=== PATIENT | male | born 2005 | race Caucasian/White ===

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

== ENCOUNTER 2024-01-12 20:36 | Emergency (ER) | payer SELFPAY ==
[~2024-01-12] VITALS: Ht 175.2 cm; Wt 63.5 kg
[2024-01-12] MEDS ORDERED: diphenhydrAMINE hydrochloride 25 MG CAP PO ONE (20:50)
== END 2024-01-12 21:04 | disposition home or self-care (01) ==
LOC: ED 20:36
DX: H00.014 Hordeolum externum left upper eyelid (principal); J45.909 Unspecified asthma, uncomplicated; F90.9 Attention-deficit hyperactivity disorder, unspecified type; F31.9 Bipolar disorder, unspecified

== ENCOUNTER 2025-07-29 19:32 | Emergency (ER) | payer SELFPAY ==
[~2025-07-29] VITALS: Ht 172.7 cm; Wt 77.1 kg
[2025-07-29] MEDS ORDERED: Acetaminophen/Hydrocodone 5 MG/325 MG TABLET PO ONE (20:00)
[2025-07-29] MEDS ORDERED: PENICILLIN V POTASSIUM 500 MG TAB PO ONE ×2 (20:00→20:42)
[2025-07-29] MEDS ORDERED: Ondansetron Hydrochloride 4 MG TAB SL ONE (20:00)
[2025-07-29] MEDS ORDERED: PENICILLIN VK500 MG PO (20:03)
[2025-07-29] MEDS ORDERED: Acetaminophen/Hydrocodone 5 MG/325 MG TABLET ONE ×2 (20:37→20:49)
[2025-07-29] MEDS ORDERED: Ondansetron Hydrochloride 4 MG TAB ONE (20:38)
== END 2025-07-29 20:06 | disposition home or self-care (01) ==
LOC: ED 19:32
DX: K02.9 Dental caries, unspecified (principal)

== ENCOUNTER 2025-08-20 19:48 | Emergency (ER) | payer SELFPAY ==
[~2025-08-20] VITALS: Ht 175.2 cm; Wt 59.0 kg
[~2025-08-20 19:48] MED LIST changes: +PENICILLIN VK500 MG PO
[2025-08-20] MEDS ORDERED: BENZONATATE100 M1 PO (20:27)
[2025-08-20] MEDS ORDERED: MUCUS RELIEF400 MG PO (20:27)
== END 2025-08-20 20:29 | disposition home or self-care (01) ==
LOC: ED 19:48
DX: B34.9 Viral infection, unspecified (principal); F90.9 Attention-deficit hyperactivity disorder, unspecified type; F31.9 Bipolar disorder, unspecified